=== PATIENT | female | born 1965 | race Caucasian/White ===

== ENCOUNTER 2018-07-03 05:39 | Inpatient (IN) | payer OTHER ==
[2018-07-03] MEDS: CEFAZOLIN 2 GM/50 ML (PMX) 50 ML IVPB (06:00)
[2018-07-03] MEDS: LACTATED RINGER'S 1,000 ML IV* ×2 (06:50→13:41)
[2018-07-03] MEDS ORDERED: LIDOCAINE 2% (SDV) 5 ML INJ (07:00)
[2018-07-03] MEDS ORDERED: morphine SULFATE/PF (10 MG/10 ML) INJ (07:29)
[2018-07-03] MEDS ORDERED: ONDANSETRON 4 MG INJ (07:29)
[2018-07-03] MEDS ORDERED: CEFAZOLIN 1 GM INJ (07:29)
[2018-07-03] MEDS ORDERED: PROPOFOL 20 ML ×2 (07:29→09:28)
[2018-07-03] MEDS ORDERED: METOCLOPRAMIDE 10 MG INJ (07:29)
[2018-07-03] MEDS ORDERED: SUCCINYLCHOLINE CHLORIDE 100 MG/5 ML SYG IV (07:29)
[2018-07-03] MEDS ORDERED: MIDAZOLAM 1 MG/ML 2 ML INJ (07:30)
[2018-07-03] MEDS ORDERED: EPHEDrine 25 MG/5 ML SYG (08:04)
[2018-07-03] MEDS ORDERED: PHENYLephrine (100 MCG/ML) 10ML SYG (08:04)
[2018-07-03] MEDS ORDERED: MEPERIDINE 25 MG INJ IV (08:30)
[2018-07-03] MEDS ORDERED: ONDANSETRON 4 MG INJ IV (08:30)
[2018-07-03] MEDS ORDERED: HYDROmorphONE 1 MG/5 ML IV SYRINGE IV ×3 (08:30)
[2018-07-03] MEDS ORDERED: DIPHENHYDRAMINE 50 MG INJ IV (08:30)
[2018-07-03] MEDS ORDERED: hydrALAzine 20 MG INJ IV (08:30)
[2018-07-03] MEDS ORDERED: KETOROLAC 30 MG INJ IV (08:30)
[2018-07-03] MEDS ORDERED: FENTAnyl 50 MCG/ML VIAL IV ×3 (08:30)
[2018-07-03] MEDS ORDERED: LABETALOL HCL 20MG INJ IV (08:30)
[2018-07-03] MEDS ORDERED: KETOROLAC 30 MG INJ (08:55)
[2018-07-03] MEDS: KETOROLAC 30 MG INJ IV ×3 (10:00→22:00)
[2018-07-03] MEDS ORDERED: DIPHENHYDRAMINE 50 MG CAP PO (10:00)
[2018-07-03] MEDS ORDERED: ZOLPIDEM 5 MG TAB PO (10:00)
[2018-07-03] MEDS ORDERED: ONDANSETRON INJ 6 MG in DEXTROSE 5% 50 ML IVPB (10:00)
[2018-07-03] MEDS: LACTATED RINGER'S 1,000 ML IV ×2 (10:19→16:36)
[2018-07-03] MEDS: METOCLOPRAMIDE 10 MG TAB PO ×2 (13:40→18:13)
[2018-07-03] MEDS: CEFAZOLIN 1 GM/50 ML (PMX) 50 ML IVPB ×2 (13:41→21:16)
[2018-07-03] MEDS: ENOXAPARIN 30 MG/0.3 ML SYG SC (21:33)
[2018-07-04] MEDS: METOCLOPRAMIDE 10 MG TAB PO ×4 (00:24→17:42)
[2018-07-04] MEDS: LACTATED RINGER'S 1,000 ML IV* (00:31)
[2018-07-04] MEDS: LACTATED RINGER'S 1,000 ML IV ×3 (00:52→17:15)
[2018-07-04] MEDS: ACETAMINOPHEN 325 MG TAB PO ×2 (02:46→19:51)
[2018-07-04] MEDS: KETOROLAC 30 MG INJ IV ×4 (04:00→22:09)
[2018-07-04 04:58] LABS: ADD UMIC YES; UR ASCORBIC ACID 40 mg/dL (NEGATIVE); UR BILIRUBIN (Dip) NEGATIVE (NEGATIVE); UR BLOOD (Dip) 3+ mg/dL (NEGATIVE); UR CLARITY SLIGHTLY CLOUDY (CLEAR); UR COLOR YELLOW (YELLOW); UR GLUCOSE (Dip) NEGATIVE (NEGATIVE); UR KETONES (Dip) NEGATIVE (NEGATIVE); UR LEUKOCYTE ESTERASE (Dip) NEGATIVE Leu/ul (NEGATIVE); UR MUCUS MODERATE /HPF (NONE SEEN); UR NITRITE (Dip) NEGATIVE (NEGATIVE); UR RBC > 182 /HPF (0-5); UR SPECIFIC GRAVITY (Dip) 1.023 (1.003-1.030); UR TOTAL PROTEIN (Dip) 1+ mg/dl (NEGATIVE); UR UROBILINOGEN (Dip) NEGATIVE (NEGATIVE); UR WBC 8 /HPF (0-5)
[2018-07-04 05:01] LABS: ADD MAN DIFF? NO
[2018-07-04 05:11] LABS: BASOPHILS % 0.4 % (0.0-2.0); EOSINOPHILS % 0.4 % (0.0-7.0); HEMATOCRIT 33.7 % (37.0-47.0); HEMOGLOBIN 10.7 g/dl (12.0-16.0); LYMPHOCYTES # 2.3 10^3/ul (0.8-2.9); LYMPHOCYTES % 28.3 % (15.0-51.0); MEAN CORPUSCULAR HEMOGLOBIN 30.3 pg (29.0-33.0); MEAN CORPUSCULAR HGB CONC 31.8 g/dl (32.0-37.0); MEAN CORPUSCULAR VOLUME 95.5 fl (82.0-101.0); MEAN PLATELET VOLUME 11.9 fl (7.4-10.4); MONOCYTE # 0.7 10^3/ul (0.3-0.9); NEUTROPHIL # 5.1 10^3/ul (1.6-7.5); NEUTROPHILS % 62.7 % (39.0-77.0); PLATELET COUNT 158 10^3/UL (140-415); RED BLOOD COUNT 3.53 10^6/ul (4.20-5.40); RED CELL DISTRIBUTION WIDTH 12.4 % (11.5-14.5)
[2018-07-04 05:11] LABS: WHITE BLOOD COUNT 8.2 10^3/ul (4.8-10.8)
[2018-07-04 05:24] LABS: ANION GAP 4 (5-13); BLOOD UREA NITROGEN 10 mg/dl (7-20); CARBON DIOXIDE 30 mmol/L (21-31); CHLORIDE 107 mmol/L (97-110); POTASSIUM 3.9 mmol/L (3.5-5.1); SODIUM 141 mmol/L (135-144)
[2018-07-04] MEDS: CEFAZOLIN 1 GM/50 ML (PMX) 50 ML IVPB ×3 (06:18→20:56)
[2018-07-04] MEDS ORDERED: SPIRONOLACTONE 25 MG TAB PO (09:00)
[2018-07-04] MEDS ORDERED: ATENOLOL 50 MG TAB PO (09:00)
[2018-07-04] MEDS: SPIRONOLACTONE 25 MG TAB PO ×2 (09:00→15:45)
[2018-07-04] MEDS: LOSARTAN 50 MG TAB PO (09:00)
[2018-07-04] MEDS ORDERED: LOSARTAN 50 MG TAB PO (09:00)
[2018-07-04] MEDS: ATENOLOL 50 MG TAB PO ×2 (09:00→20:56)
[2018-07-04] MEDS: ENOXAPARIN 30 MG/0.3 ML SYG SC ×2 (09:05→21:02)
[2018-07-04] MEDS: hydrALAzine 20 MG INJ IV ×2 (15:45→22:18)
[2018-07-05] MEDS: METOCLOPRAMIDE 10 MG TAB PO ×5 (00:17→23:59)
[2018-07-05] MEDS: KETOROLAC 30 MG INJ IV ×4 (03:52→22:12)
[2018-07-05 05:04] LABS: ADD MAN DIFF? NO
[2018-07-05 05:08] LABS: WHITE BLOOD COUNT 8.8 10^3/ul (4.8-10.8)
[2018-07-05 05:08] LABS: BASOPHILS % 0.3 % (0.0-2.0); EOSINOPHILS % 0.5 % (0.0-7.0); HEMATOCRIT 33.6 % (37.0-47.0); HEMOGLOBIN 10.9 g/dl (12.0-16.0); LYMPHOCYTES # 2.1 10^3/ul (0.8-2.9); LYMPHOCYTES % 23.5 % (15.0-51.0); MEAN CORPUSCULAR HEMOGLOBIN 30.4 pg (29.0-33.0); MEAN CORPUSCULAR HGB CONC 32.4 g/dl (32.0-37.0); MEAN CORPUSCULAR VOLUME 93.9 fl (82.0-101.0); MEAN PLATELET VOLUME 12.1 fl (7.4-10.4); MONOCYTE # 0.7 10^3/ul (0.3-0.9); MONOCYTES % 7.5 % (0.0-11.0); NEUTROPHILS % 67.7 % (39.0-77.0); PLATELET COUNT 188 10^3/UL (140-415); RED BLOOD COUNT 3.58 10^6/ul (4.20-5.40); RED CELL DISTRIBUTION WIDTH 11.9 % (11.5-14.5)
[2018-07-05] MEDS: CEFAZOLIN 1 GM/50 ML (PMX) 50 ML IVPB ×3 (06:01→22:12)
[2018-07-05] MEDS: LOSARTAN 50 MG TAB PO (08:02)
[2018-07-05] MEDS: ENOXAPARIN 30 MG/0.3 ML SYG SC ×2 (08:03→20:03)
[2018-07-05] MEDS: hydrALAzine 20 MG INJ IV (09:38)
[2018-07-05] MEDS: SPIRONOLACTONE 25 MG TAB PO (15:12)
[2018-07-05] MEDS: ATENOLOL 50 MG TAB PO (19:42)
[2018-07-06] MEDS: KETOROLAC 30 MG INJ IV (04:33)
[2018-07-06] MEDS: CEFAZOLIN 1 GM/50 ML (PMX) 50 ML IVPB (06:36)
[2018-07-06] MEDS: METOCLOPRAMIDE 10 MG TAB PO (06:36)
[2018-07-06] MEDS: LOSARTAN 50 MG TAB PO (08:16)
[2018-07-06] MEDS: ENOXAPARIN 30 MG/0.3 ML SYG SC (08:18)
== END 2018-07-06 10:55 | disposition home or self-care (01) | DRG 743 ==
LOC: REC 05:39 → MS1 11:23
PROC: 0UT90ZL Resection of Uterus, Supracervical, Open Approach (ICD-10-PCS; principal; 2018-07-03 07:30)
PROC: 0DNU0ZZ Release Omentum, Open Approach (ICD-10-PCS; 2018-07-03 07:30)
PROC: 0UN20ZZ Release Bilateral Ovaries, Open Approach (ICD-10-PCS; 2018-07-03 07:30)
PROC: 0UN70ZZ Release Bilateral Fallopian Tubes, Open Approach (ICD-10-PCS; 2018-07-03 07:30)
PROC: 0TNB0ZZ Release Bladder, Open Approach (ICD-10-PCS; 2018-07-03 07:30)
PROC: 0UB70ZZ Excision of Bilateral Fallopian Tubes, Open Approach (ICD-10-PCS; 2018-07-03 07:30)
DX: D25.1 Intramural leiomyoma of uterus (principal); D25.0 Submucous leiomyoma of uterus; N80.0 Endometriosis of uterus; I10 Essential (primary) hypertension; J45.909 Unspecified asthma, uncomplicated; E66.9 Obesity, unspecified; Z68.35 Body mass index [BMI] 35.0-35.9, adult; N92.1 Excessive and frequent menstruation with irregular cycle; D64.9 Anemia, unspecified; Z72.0 Tobacco use; N73.6 Female pelvic peritoneal adhesions (postinfective); N32.89 Other specified disorders of bladder
CPT/HCPCS: 80051; 81001; 82565; 84520; 84703; 85025; 86850; 86900; 86901; 86920; 87040-91; 87086; 88302; 88305